=== PATIENT | female | born 1955 | race Caucasian/White ===

== ENCOUNTER 2022-05-04 10:15 | Emergency (ER) | payer MEDICARE | END 2022-05-04 11:10 | disposition home or self-care (01) | LOC: CSHERS 10:15 | DX: I10 Essential (primary) hypertension (principal); E11.42 Type 2 diabetes mellitus with diabetic polyneuropathy; E78.5 Hyperlipidemia, unspecified; F17.210 Nicotine dependence, cigarettes, uncomplicated | CPT/HCPCS: 93005 ==

== ENCOUNTER 2022-05-04 19:00 | Inpatient (IN) | payer MEDICARE ==
[~2022-05-04 19:00] MED LIST: Iopamidol 370 76% 100 ML VIAL ONE
[2022-05-04] MEDS ORDERED: Ondansetron PF 4 MG/2 ML Vial ONE (19:45)
[2022-05-04] MEDS ORDERED: Morphine 4 MG/ML VIAL ONE (19:45)
[2022-05-04 19:57] LABS: Hemoglobin 11.5 g/dL (12.0-15.5); Mean Corpuscular HGB CONC 28.8 g/dL (32.0-36.0); Mean Corpuscular Hemoglobin 32.6 pg (27.0-33.0); Mean Platelet Volume 11.4 fl (7.4-10.4); Platelet Count 339 10x3/uL (150-450); RBC Distribution Width 15.5 % (11.5-14.5); Red Blood Cell (RBC) Count 3.53 10x6/uL (3.90-5.03); White Blood Cell (WBC) Count 28.4 10x3/uL (3.5-10.5)
[2022-05-04 19:59] LABS: PTT 39.1 sec (22.0-33.0); Prothrombin Time 10.9 sec (9.5-12.1)
[2022-05-04 20:03] LABS: ALT (SGPT) 31 U/L (8-55); AST (SGOT) 42 U/L (5-34); Albumin 4.2 g/dL (3.4-4.8); Alkaline Phosphatase 80 U/L (40-110); BUN (Urea Nitrogen) 44 mg/dL (9.8-20.1); Bilirubin, Total 0.1 mg/dL (0.2-1.2); Calc. Creatinine Clearance 0 mL/min (70-130); Calcium 10.7 mg/dL (7.8-10.44); Chloride 90 mmol/L (98-107); Estimated GFR 9; Globulin 3.3 g/dL (2.4-3.5); Glucose 172 mg/dL (80-115); Potassium 4.8 mmol/L (3.5-5.1); Protein, Total 7.5 g/dL (5.8-8.1); Sodium 143 mmol/L (136-145)
[2022-05-04 20:07] LABS: Carbon Dioxide Less than 8 mmol/L (23-31)
[2022-05-04] MEDS ORDERED: Piperacillin/Tazobactam 3.375 GM VIAL ONE (20:10)
[2022-05-04 20:18] LABS: MDiff Complete? YES
[2022-05-04 20:21] LABS: Band 2 % (5-11); Eosinophils 1 % (0-10); Lymphocytes 41 % (21-51); Monocytes 2 % (0-10); Neutrophil 53 % (42-75)
[2022-05-04 20:22] LABS: Platelet Morphology Comment PLT clumps seen-ADEQ
[2022-05-04 20:23] LABS: Platelet Clumps SLIGHT; RBC Morphology Normal
[2022-05-04 20:49] LABS: Magnesium 3.2 mg/dL (1.6-2.6)
[2022-05-04] MEDS ORDERED: Propofol 1,000 MG/100 ML VIAL IV ONE (21:08)
[2022-05-04 21:29] LABS: Bilirubin Neg (Negative); Blood, Urine 150 (Negative); Clarity Cloudy (Clear); Glucose, Urine (Dipstick) Normal (Negative); Ketone, Urine 50 mg/dL (Negative); Leukocyte 500 (Negative); Nitrite Negative (Negative); Protein, Urine (Dipstick) 100 mg/dl (Neg-Trace); Urobilinogen Normal mg/dL (Less than 2)
[2022-05-04] MEDS ORDERED: Vancomycin 1.5 GRAM/300 ML BAG 1.5 GM in Premix Bag 1 BAG IVPB SCH (21:30)
[2022-05-04] MEDS ORDERED: POTASSIUM CHLORIDE IV SCH (21:30)
[2022-05-04] MEDS ORDERED: SODIUM BICARBONATE IV SCH (21:30)
[2022-05-04] MEDS ORDERED: STERILE WATER IV SCH (21:30)
[2022-05-04 21:41] LABS: Bacteria/HPF 4+ HPF (None Seen); Squamous Epithelial 0-3 HPF (0-3); Yeast-Budding 2+ HPF (None Seen)
[2022-05-04 21:42] LABS: Calcium Oxalate Crystals 3+ HPF (None Seen); Mucous/LPF 1+ LPF (<2+); Triple Phosphate Crystal 4+ HPF (None Seen)
[2022-05-04] MEDS ORDERED: Communication Order-Pharmacy FS ONE (22:01)
[2022-05-04] MEDS ORDERED: INSULIN REGULAR IN 0.9 % NACL 100 UNIT in Premix Bag 1 BAG IVPB SCH (22:15)
[2022-05-04 22:52] LABS: BUN (Urea Nitrogen) 41 mg/dL (9.8-20.1); Calc. Creatinine Clearance 0 mL/min (70-130); Carbon Dioxide Less than 8 mmol/L (23-31); Chloride 97 mmol/L (98-107); Estimated GFR 10; Glucose 125 mg/dL (80-115); Magnesium 3.1 mg/dL (1.6-2.6); Phosphorus 9.8 mg/dL (2.3-4.7); Sodium 139 mmol/L (136-145)
[2022-05-04 22:53] LABS: Lactic Acid 19.6 mmol/L (0.5-2.2)
[2022-05-04] MEDS ORDERED: NOREPINEPHRINE 8 MG/250 ML-D5W 250 ML ONE (23:41)
[2022-05-04] MEDS: FENTANYL 2,000MCG/100-0.9%NACL 100 ML IVPB SCH (23:46)
[2022-05-05] MEDS ORDERED: [UNRECOGNIZED DRUG - OTHER] FS SCH (00:15)
[2022-05-05 01:38] LABS: ALT (SGPT) 27 U/L (8-55); AST (SGOT) 49 U/L (5-34); Albumin 3.1 g/dL (3.4-4.8); Alkaline Phosphatase 69 U/L (40-110); BUN (Urea Nitrogen) 45 mg/dL (9.8-20.1); Bilirubin, Total 0.2 mg/dL (0.2-1.2); Calc. Creatinine Clearance 14 mL/min (70-130); Calcium 8.8 mg/dL (7.8-10.44); Carbon Dioxide Less than 8 mmol/L (23-31); Chloride 96 mmol/L (98-107); Estimated GFR 10; Globulin 2.5 g/dL (2.4-3.5); Glucose 135 mg/dL (80-115); Lactic Acid 17.9 mmol/L (0.5-2.2); Phosphorus 10.1 mg/dL (2.3-4.7); Potassium 6.2 mmol/L (3.5-5.1); Protein, Total 5.6 g/dL (5.8-8.1); Sodium 137 mmol/L (136-145)
[2022-05-05] MEDS: Sodium Bicarbonate 150 MEQ in Dextrose 5% in Water 1,000 ML IV SCH ×3 (01:45→08:05)
[2022-05-05] MEDS ORDERED: Fentanyl BOLUS 250 ML IVPB PRN (02:00)
[2022-05-05] MEDS ORDERED: Propofol 1,000 MG/100 ML VIAL IV PRN (02:00)
[2022-05-05] MEDS ORDERED: Propofol BOLUS 1,000 MG/100 ML VIAL IV PRN (02:00)
[2022-05-05] MEDS ORDERED: Lorazepam 2 MG/ML VIAL SLOW IVP PRN (02:00)
[2022-05-05] MEDS ORDERED: DISCONTINUE PREVIOUS NARCOTIC PAIN MEDICATIONS AND BENZODIAZEPINES FS SCH (02:00)
[2022-05-05] MEDS ORDERED: Pantoprazole 40 MG VIAL IVP SCH ×2 (03:00→09:00)
[2022-05-05] MEDS ORDERED: INSULIN REGULAR IN 0.9 % NACL 100 UNIT in Premix Bag 1 BAG IVPB SCH (03:30)
[2022-05-05] MEDS ORDERED: Dextrose 10% in Water 1,000 ML IV SCH (03:30)
[2022-05-05] MEDS ORDERED: Sodium Bicarb 50 MEQ/50 ML Abboject 8.4% SYRINGE IVP SCH (03:30)
[2022-05-05 03:45] LABS: Base Excess (BEa) -35.1 mEq/L (-2.0 to +3.0); CO2 Tension 30.6 mmHg (35.0-45.0); Carboxyhemoglobin (COHb) 1.2 gm% (0.0-3.0); Hemoglobin (Hb) 13.3 g/dL (12.0-16.0); O2 Tension (PaO2), arterial 111.5 mmHg (> 80.0); Potassium - ABG Lab 4.8 mmol/L (3.70-5.30); Puncture Site RRA
[2022-05-05] MEDS ORDERED: Sodium Bicarb 50 MEQ/50 ML VIAL IVP SCH ×4 (03:45→11:45)
[2022-05-05 03:48] LABS: ALV-art Gradient 108.125 mmHg (0-20); Actual Bicarbonate (HCO3a) 2.6 mEq/L (22-28); Base Excess (BEa) -36.6 mEq/L (-2.0 to +3.0); CO2 Tension 31.5 mmHg (35.0-45.0); Calcium, Ionized (arterial) 1.25 mmol/L (1.12-1.30); Carboxyhemoglobin (COHb) 0.3 gm% (0.0-3.0); Hemoglobin (Hb) 12.6 g/dL (12.0-16.0); Potassium - ABG Lab 4.9 mmol/L (3.70-5.30); Puncture Site RRA; pH, Arterial 6.54 (7.35-7.45)
[2022-05-05 04:22] LABS: Hemoglobin 10.1 g/dL (12.0-15.5); Mean Corpuscular Hemoglobin 32.7 pg (27.0-33.0); Mean Corpuscular Volume 112.6 fl (81.6-98.3); Mean Platelet Volume 11.5 fl (7.4-10.4); Platelet Count 293 10x3/uL (150-450); RBC Distribution Width 15.3 % (11.5-14.5); Red Blood Cell (RBC) Count 3.09 10x6/uL (3.90-5.03); White Blood Cell (WBC) Count 34.8 10x3/uL (3.5-10.5)
[2022-05-05 04:24] LABS: Actual Bicarbonate (HCO3a) 3.2 mEq/L (22-28); Base Excess (BEa) -31.3 mEq/L (-2.0 to +3.0); CO2 Tension 24.2 mmHg (35.0-45.0); Calcium, Ionized (arterial) 1.14 mmol/L (1.12-1.30); Carboxyhemoglobin (COHb) 0.3 gm% (0.0-3.0); Hemoglobin (Hb) 11.2 g/dL (12.0-16.0); O2 Tension (PaO2), arterial 172.2 mmHg (> 80.0); Potassium - ABG Lab 6.6 mmol/L (3.70-5.30); Puncture Site RRA; pH, Arterial 6.75 (7.35-7.45)
[2022-05-05 04:25] LABS: BUN (Urea Nitrogen) 49 mg/dL (9.8-20.1); Calc. Creatinine Clearance 14 mL/min (70-130); Calcium 8.6 mg/dL (7.8-10.44); Chloride 91 mmol/L (98-107); Estimated GFR 10; Glucose 239 mg/dL (80-115); MDiff Complete? YES; Sodium 134 mmol/L (136-145)
[2022-05-05 04:29] LABS: Carbon Dioxide Less than 8 mmol/L (23-31); Potassium 6.6 mmol/L (3.5-5.1)
[2022-05-05 04:30] LABS: Troponin I 0.055 ng/mL (< 0.028)
[2022-05-05 04:39] LABS: SARS-CoV-2 NAA Rapid Test Not Detected (NotDetected)
[2022-05-05] MEDS: metroNIDAZOLE 500 MG in Premix Bag 1 BAG IVPB SCH ×2 (04:55→11:55)
[2022-05-05] MEDS: Piperacillin/Tazobactam 3.375 GM in Sodium Chloride 0.9% 100 ML IVPB SCH ×2 (04:55→16:24)
[2022-05-05 05:22] LABS: Band 12 % (5-11); Lymphocytes 25 % (21-51); Monocytes 15 % (0-10); Neutrophil 48 % (42-75)
[2022-05-05 05:30] LABS: Crenated RBC SLIGHT = 1-5 cells (100X) (None Seen); Microcytosis SLIGHT = 6-15 cells (100X) (0-5/hpf); Platelet Morphology Comment Appears Adequate
[2022-05-05 07:15] LABS: BUN (Urea Nitrogen) 45 mg/dL (9.8-20.1); Calc. Creatinine Clearance 14 mL/min (70-130); Calcium 8.4 mg/dL (7.8-10.44); Chloride 87 mmol/L (98-107); Estimated GFR 10; Glucose 398 mg/dL (80-115); Magnesium 2.7 mg/dL (1.6-2.6); Phosphorus 8.8 mg/dL (2.3-4.7); Sodium 140 mmol/L (136-145)
[2022-05-05 07:19] LABS: Carbon Dioxide Less than 8 mmol/L (23-31); Potassium 6.1 mmol/L (3.5-5.1)
[2022-05-05 07:48] LABS: HBSAg Index 0.16 S/CO (0-0.99); Hep B Surf Ag Non-Reactive S/CO (NonReactive)
[2022-05-05] MEDS ORDERED: Albumin 25% 200 ML ONE (07:58)
[2022-05-05] MEDS ORDERED: Albumin 25% 25 GM/100 ML BOT IVPB ONE (08:00)
[2022-05-05] MEDS: Heparin 5,000 UNITS/ML VIAL SC SCH ×3 (08:58→20:33)
[2022-05-05] MEDS: Pantoprazole 40 MG VIAL IVP SCH ×2 (08:58→20:34)
[2022-05-05] MEDS: NOREPINEPHRINE 8 MG/250 ML-D5W 250 ML IVPB SCH ×2 (09:15)
[2022-05-05] MEDS ORDERED: FLU VACC QS2022-23(65YR UP)/PF 240 MCG/0.7 ML SYRINGE IM ONE (10:15)
[2022-05-05 10:35] LABS: Anion Gap 32 mmol/L (10-20); BUN (Urea Nitrogen) 22 mg/dL (9.8-20.1); Calc. Creatinine Clearance 32 mL/min (70-130); Calcium 8.4 mg/dL (7.8-10.44); Carbon Dioxide 20 mmol/L (23-31); Chloride 92 mmol/L (98-107); Estimated GFR 27; Glucose 256 mg/dL (80-115); Potassium 3.5 mmol/L (3.5-5.1); Sodium 140 mmol/L (136-145)
[2022-05-05] MEDS ORDERED: Heparin 10,000 UNITS/ 10 ML VIAL FS PRN (10:44)
[2022-05-05] MEDS ORDERED: Vasopressin 20 UNIT, Admixture Fee 1 EACH in Sodium Chloride 0.9% 50 ML IV SCH (11:45)
[2022-05-05] MEDS: Hydrocortisone Sod Succ/PF 100 mg/2 ml Vial IVP SCH ×2 (11:55→20:13)
[2022-05-05] MEDS: Sodium Chloride 0.9% 1,000 ML IV SCH ×4 (12:42→16:25)
[2022-05-05 13:30] LABS: Actual Bicarbonate (HCO3a) 28.8 mEq/L (22-28); Base Excess (BEa) 6.2 mEq/L (-2.0 to +3.0); CO2 Tension 33.4 mmHg (35.0-45.0); Calcium, Ionized (arterial) 0.93 mmol/L (1.12-1.30); Carboxyhemoglobin (COHb) 0.3 gm% (0.0-3.0); Hemoglobin (Hb) 8.2 g/dL (12.0-16.0); Potassium - ABG Lab 3.6 mmol/L (3.70-5.30); Puncture Site RRA; pH, Arterial 7.55 (7.35-7.45)
[2022-05-05 14:35] LABS: Anion Gap 29 mmol/L (10-20); BUN (Urea Nitrogen) 15 mg/dL (9.8-20.1); Calc. Creatinine Clearance 36 mL/min (70-130); Calcium 7.8 mg/dL (7.8-10.44); Carbon Dioxide 26 mmol/L (23-31); Chloride 95 mmol/L (98-107); Estimated GFR 32; Glucose 83 mg/dL (80-115); Potassium 3.9 mmol/L (3.5-5.1); Sodium 146 mmol/L (136-145)
[2022-05-05 18:07] LABS: Complement-C4 49.5 mg/dL (15-57)
[2022-05-05 18:09] LABS: Lactic Acid 1.8 mmol/L (0.5-2.2)
[2022-05-05 18:12] LABS: Anion Gap 33 mmol/L (10-20); BUN (Urea Nitrogen) 17 mg/dL (9.8-20.1); Calc. Creatinine Clearance 33 mL/min (70-130); Calcium 7.7 mg/dL (7.8-10.44); Carbon Dioxide 19 mmol/L (23-31); Chloride 97 mmol/L (98-107); Estimated GFR 29; Potassium 3.5 mmol/L (3.5-5.1); Sodium 145 mmol/L (136-145)
[2022-05-05 18:24] LABS: Glucose 51 mg/dL (80-115)
[2022-05-05] MEDS ORDERED: Dextrose 5 % And 0.9 % NaCl 1,000 ML IV SCH (19:00)
[2022-05-05] MEDS ORDERED: Dextrose 50% Abboject 50 ML SYRINGE SLOW IVP SCH (19:15)
[2022-05-06] MEDS: Lantus 1000 UNITS/10 ML VIAL SC SCH ×3 (00:52→19:41)
[2022-05-06] MEDS: Hydrocortisone Sod Succ/PF 100 mg/2 ml Vial IVP SCH (04:47)
[2022-05-06] MEDS: Piperacillin/Tazobactam 3.375 GM in Sodium Chloride 0.9% 100 ML IVPB SCH ×2 (04:47→16:00)
[2022-05-06] MEDS: FENTANYL 2,000MCG/100-0.9%NACL 100 ML IVPB SCH (04:57)
[2022-05-06 06:47] LABS: Anion Gap 37 mmol/L (10-20); BUN (Urea Nitrogen) 23 mg/dL (9.8-20.1); Calc. Creatinine Clearance 24 mL/min (70-130); Calcium 7.5 mg/dL (7.8-10.44); Carbon Dioxide 14 mmol/L (23-31); Chloride 100 mmol/L (98-107); Estimated GFR 18; Glucose 141 mg/dL (80-115); Potassium 3.5 mmol/L (3.5-5.1); Sodium 147 mmol/L (136-145)
[2022-05-06 06:53] LABS: #Monocytes 0.5 10x3/uL (0.0-1.1); #Neutrophils 5.9 10x3/uL (1.5-8.4); %Monocytes 6.7 % (0.0-10.0); %Neutrophils 77.8 % (40.0-75.0); Hemoglobin 7.5 g/dL (12.0-15.5); Mean Corpuscular HGB CONC 33.2 g/dL (32.0-36.0); Mean Corpuscular Hemoglobin 32.3 pg (27.0-33.0); Mean Corpuscular Volume 97.4 fl (81.6-98.3); Mean Platelet Volume 11.2 fl (7.4-10.4); Platelet Count 97 10x3/uL (150-450); RBC Distribution Width 16.2 % (11.5-14.5); Red Blood Cell (RBC) Count 2.32 10x6/uL (3.90-5.03); White Blood Cell (WBC) Count 7.6 10x3/uL (3.5-10.5)
[2022-05-06] MEDS ORDERED: Sodium Bicarbonate 75 MEQ in Dextrose 5% in Water 1,000 ML IV SCH (07:00)
[2022-05-06] MEDS: Pantoprazole 40 MG VIAL IVP SCH ×2 (08:13→21:29)
[2022-05-06] MEDS: Heparin 5,000 UNITS/ML VIAL SC SCH ×2 (08:15→09:57)
[2022-05-06 08:21] LABS: Actual Bicarbonate (HCO3a) 20.8 mEq/L (22-28); Base Excess (BEa) -1.9 mEq/L (-2.0 to +3.0); CO2 Tension 27.4 mmHg (35.0-45.0); Calcium, Ionized (arterial) 0.93 mmol/L (1.12-1.30); Carboxyhemoglobin (COHb) 0.3 gm% (0.0-3.0); Hemoglobin (Hb) 8.1 g/dL (12.0-16.0); O2 Tension (PaO2), arterial 146.7 mmHg (> 80.0); Potassium - ABG Lab 3.4 mmol/L (3.70-5.30); Puncture Site RRA
[2022-05-06 09:16] LABS: Iron 81 ug/dL (50-170); Iron Binding Capacity, Total 135 mcg/dL (265-497)
[2022-05-06] MEDS ORDERED: Dextrose 10% in Water 1,000 ML IV SCH (11:15)
[2022-05-06 12:49] LABS: Actual Bicarbonate (HCO3a) 27.7 mEq/L (22-28); Base Excess (BEa) 3.8 mEq/L (-2.0 to +3.0); CO2 Tension 38.9 mmHg (35.0-45.0); Calcium, Ionized (arterial) 0.96 mmol/L (1.12-1.30); Carboxyhemoglobin (COHb) 0.1 gm% (0.0-3.0); Hemoglobin (Hb) 8.3 g/dL (12.0-16.0); O2 Tension (PaO2), arterial 89.9 mmHg (> 80.0); Potassium - ABG Lab 3.3 mmol/L (3.70-5.30); Puncture Site RRA; pH, Arterial 7.47 (7.35-7.45)
[2022-05-06 12:52] LABS: ALV-art Gradient 146.675 mmHg (0-20)
[2022-05-06] MEDS: Dextrose 5% in Water 1,000 ML IV SCH (14:40)
[2022-05-06] MEDS ORDERED: Heparin 5,000 UNITS/ML VIAL SC SCH (21:00)
[2022-05-06] MEDS ORDERED: Labetalol HCl 100 MG/20 ML VIAL SLOW IVP SCH (23:15)
[2022-05-07 03:24] LABS: #Monocytes 0.4 10x3/uL (0.0-1.1); #Neutrophils 3.9 10x3/uL (1.5-8.4); %Basophils 0.2 % (0.0-2.0); %Eosinophils 0.4 % (0.0-6.0); %Monocytes 6.9 % (0.0-10.0); %Neutrophils 72.1 % (40.0-75.0); Hemoglobin 7.5 g/dL (12.0-15.5); Mean Corpuscular HGB CONC 32.5 g/dL (32.0-36.0); Mean Corpuscular Hemoglobin 32.1 pg (27.0-33.0); Mean Corpuscular Volume 98.7 fl (81.6-98.3); Platelet Count 74 10x3/uL (150-450); RBC Distribution Width 16.6 % (11.5-14.5); Red Blood Cell (RBC) Count 2.34 10x6/uL (3.90-5.03); White Blood Cell (WBC) Count 5.3 10x3/uL (3.5-10.5)
[2022-05-07 03:42] LABS: Albumin 3.2 g/dL (3.4-4.8); Anion Gap 19 mmol/L (10-20); BUN (Urea Nitrogen) 30 mg/dL (9.8-20.1); BUN/Creatinine Ratio 7.71; Calc. Creatinine Clearance 17 mL/min (70-130); Calcium 7.4 mg/dL (7.8-10.44); Carbon Dioxide 28 mmol/L (23-31); Chloride 97 mmol/L (98-107); Estimated GFR 12; Glucose 145 mg/dL (80-115); Phosphorus 2.6 mg/dL (2.3-4.7); Potassium 2.8 mmol/L (3.5-5.1); Sodium 141 mmol/L (136-145)
[2022-05-07] MEDS: Piperacillin/Tazobactam 3.375 GM in Sodium Chloride 0.9% 100 ML IVPB SCH ×2 (05:11→15:12)
[2022-05-07 07:28] LABS: Vancomycin, Random 13.4 ug/mL (See Comment)
[2022-05-07] MEDS ORDERED: Potassium Chloride 20 MEQ in Premix Bag 1 BAG IVPB SCH (08:00)
[2022-05-07] MEDS: Pantoprazole 40 MG VIAL IVP SCH ×2 (08:23→21:00)
[2022-05-07] MEDS: Lantus 1000 UNITS/10 ML VIAL SC SCH ×2 (08:24→22:07)
[2022-05-07] MEDS: Dextrose 5% in Water 1,000 ML IV SCH (08:34)
[2022-05-07] MEDS ORDERED: Hydrocortisone Sod Succ/PF 100 mg/2 ml Vial IVP SCH (09:00)
[2022-05-07] MEDS ORDERED: Lisinopril 20 MG TAB PO SCH (14:30)
[2022-05-07] MEDS: NIFEdipine XL 90 MG TAB PO SCH ×2 (15:29→15:43)
[2022-05-07] MEDS ORDERED: Vancomycin HCl 750 MG in Sodium Chloride 0.9% 250 ML 250 ML IVPB SCH (17:00)
[2022-05-07] MEDS ORDERED: Dextrose 50% Abboject 50 ML SYRINGE SLOW IVP PRN (18:03)
[2022-05-07] MEDS ORDERED: Dextrose 5% in Water 1,000 ML IV PRN (18:03)
[2022-05-07] MEDS: Gabapentin 300 MG CAP PO SCH (21:01)
[2022-05-07] MEDS: Rosuvastatin 10 MG TAB PO SCH (21:01)
[2022-05-07] MEDS: Metoprolol Tartrate 25 MG TAB PO SCH (22:07)
[2022-05-08] MEDS: Morphine 2 MG/ML VIAL SLOW IVP PRN ×2 (00:59→11:43)
[2022-05-08 03:46] LABS: #Monocytes 0.4 10x3/uL (0.0-1.1); #Neutrophils 4.2 10x3/uL (1.5-8.4); %Basophils 0.2 % (0.0-2.0); %Eosinophils 0.5 % (0.0-6.0); %Lymphocytes 21.7 % (18.0-47.0); %Monocytes 6.1 % (0.0-10.0); %Neutrophils 71.2 % (40.0-75.0); Hemoglobin 7.4 g/dL (12.0-15.5); Mean Corpuscular HGB CONC 32.3 g/dL (32.0-36.0); Mean Corpuscular Hemoglobin 31.9 pg (27.0-33.0); Mean Corpuscular Volume 98.7 fl (81.6-98.3); Platelet Count 74 10x3/uL (150-450); RBC Distribution Width 15.5 % (11.5-14.5); Red Blood Cell (RBC) Count 2.32 10x6/uL (3.90-5.03)
[2022-05-08 04:01] LABS: Anion Gap 13 mmol/L (10-20); BUN (Urea Nitrogen) 15 mg/dL (9.8-20.1); BUN/Creatinine Ratio 5.98; Calc. Creatinine Clearance 27 mL/min (70-130); Calcium 8.1 mg/dL (7.8-10.44); Carbon Dioxide 27 mmol/L (23-31); Chloride 100 mmol/L (98-107); Estimated GFR 21; Glucose 157 mg/dL (80-115); Phosphorus 1.9 mg/dL (2.3-4.7); Sodium 137 mmol/L (136-145)
[2022-05-08] MEDS: Piperacillin/Tazobactam 3.375 GM in Sodium Chloride 0.9% 100 ML IVPB SCH (04:41)
[2022-05-08] MEDS ORDERED: Potassium Chloride 20 MEQ in Premix Bag 1 BAG IVPB SCH (05:00)
[2022-05-08] MEDS ORDERED: EPOETIN ALFA-EPBX (ESRD) 10,000 UNIT/ML VIAL SC SCH (06:00)
[2022-05-08] MEDS ORDERED: Potassium Phosphate 22 MMOL in Sodium Chloride 0.9% 250 ML 250 ML IVPB SCH (06:15)
[2022-05-08 07:33] LABS: Vancomycin, Random 8.9 ug/mL (See Comment)
[2022-05-08] MEDS: Gabapentin 300 MG CAP PO SCH ×2 (08:49→22:55)
[2022-05-08] MEDS: Metoprolol Tartrate 25 MG TAB PO SCH (08:50)
[2022-05-08] MEDS: Lantus 1000 UNITS/10 ML VIAL SC SCH (08:50)
[2022-05-08] MEDS: Pantoprazole 40 MG VIAL IVP SCH ×2 (08:50→22:56)
[2022-05-08] MEDS ORDERED: NIFEdipine XL 90 MG TAB PO SCH (09:00)
[2022-05-08] MEDS ORDERED: Lisinopril 20 MG TAB PO SCH (09:00)
[2022-05-08] MEDS ORDERED: Vancomycin HCl 750 MG in Sodium Chloride 0.9% 250 ML 250 ML IVPB SCH (10:30)
[2022-05-08] MEDS: HumaLOG 300 UNITS/3 ML VIAL SC SCH ×2 (11:43→17:12)
[2022-05-08] MEDS: Rosuvastatin 10 MG TAB PO SCH (22:56)
[2022-05-09 05:14] LABS: Albumin 2.8 g/dL (3.4-4.8); Anion Gap 13 mmol/L (10-20); BUN (Urea Nitrogen) 21 mg/dL (9.8-20.1); BUN/Creatinine Ratio 5.87; Calc. Creatinine Clearance 18 mL/min (70-130); Calcium 7.5 mg/dL (7.8-10.44); Carbon Dioxide 26 mmol/L (23-31); Chloride 102 mmol/L (98-107); Estimated GFR 14; Glucose 87 mg/dL (80-115); Phosphorus 3.9 mg/dL (2.3-4.7); Potassium 3.5 mmol/L (3.5-5.1); Sodium 137 mmol/L (136-145)
[2022-05-09] MEDS: Metoprolol Tartrate 25 MG TAB PO SCH ×2 (05:23→07:51)
[2022-05-09] MEDS: Lantus 1000 UNITS/10 ML VIAL SC SCH ×2 (05:27→12:29)
[2022-05-09 07:43] LABS: Vancomycin, Random 18.9 ug/mL (See Comment)
[2022-05-09] MEDS: Albumin 25% 25 GM/100 ML BOT IVPB SCH ×2 (07:49→13:25)
[2022-05-09] MEDS: Gabapentin 300 MG CAP PO SCH (07:51)
[2022-05-09] MEDS ORDERED: Heparin 10,000 UNITS/ 10 ML VIAL SLOW IVP PRN ×2 (09:50→09:51)
[2022-05-09] MEDS ORDERED: Potassium Chloride 20 MEQ TAB PO SCH (11:00)
[2022-05-09] MEDS ORDERED: Iopamidol 370 76% 100 ML VIAL ONE (11:34)
[2022-05-09 11:40] LABS: HBSAg Index 0.16 S/CO (0-0.99); Hep B Surf Ag Non-Reactive S/CO (NonReactive)
[2022-05-09] MEDS ORDERED: Cosyntropin 250 MCG VIAL SLOW IVP SCH (12:00)
[2022-05-09 17:25] LABS: HBSAB Concentration Less than 8.00 mIU/mL; Hep B Surf AB Non-Reactive (NonReactive)
[2022-05-09] MEDS: Ergocalciferol 1.25 MG(50,000 UNITS) CAP PO SCH (18:14)
[2022-05-10] MEDS: Calcium Carbonate 500 MG ChewTAB PO SCH ×3 (00:13→22:56)
[2022-05-10] MEDS: Rosuvastatin 10 MG TAB PO SCH ×2 (00:13→22:55)
[2022-05-10] MEDS: Gabapentin 300 MG CAP PO SCH ×3 (00:14→22:55)
[2022-05-10] MEDS: Ergocalciferol 1.25 MG(50,000 UNITS) CAP PO SCH (00:15)
[2022-05-10] MEDS: Lantus 1000 UNITS/10 ML VIAL SC SCH (05:59)
[2022-05-10] MEDS: Metoprolol Tartrate 25 MG TAB PO SCH ×2 (06:00→10:20)
[2022-05-10] MEDS: traMADol HCl 50 MG TAB PO PRN ×2 (06:59→22:54)
[2022-05-10] MEDS ORDERED: Iopamidol 370 76% 100 ML VIAL ONE (11:05)
[2022-05-11 04:46] LABS: #Eosinphils 0.2 10x3/uL (0.0-0.5); #Monocytes 0.6 10x3/uL (0.0-1.1); #Neutrophils 3.8 10x3/uL (1.5-8.4); %Basophils 0.3 % (0.0-2.0); %Eosinophils 2.9 % (0.0-6.0); %Lymphocytes 27.7 % (18.0-47.0); %Monocytes 8.5 % (0.0-10.0); %Neutrophils 59.1 % (40.0-75.0); Hemoglobin 7.3 g/dL (12.0-15.5); Mean Corpuscular HGB CONC 31.6 g/dL (32.0-36.0); Mean Corpuscular Hemoglobin 32.3 pg (27.0-33.0); Mean Corpuscular Volume 102.2 fl (81.6-98.3); Mean Platelet Volume 11.4 fl (7.4-10.4); Platelet Count 106 10x3/uL (150-450); RBC Distribution Width 15.1 % (11.5-14.5); Red Blood Cell (RBC) Count 2.26 10x6/uL (3.90-5.03); White Blood Cell (WBC) Count 6.5 10x3/uL (3.5-10.5)
[2022-05-11 04:53] LABS: Albumin 3.5 g/dL (3.4-4.8); Anion Gap 10 mmol/L (10-20); BUN (Urea Nitrogen) 15 mg/dL (9.8-20.1); BUN/Creatinine Ratio 4.89; Calc. Creatinine Clearance 22 mL/min (70-130); Calcium 8.4 mg/dL (7.8-10.44); Carbon Dioxide 33 mmol/L (23-31); Chloride 100 mmol/L (98-107); Estimated GFR 16; Glucose 89 mg/dL (80-115); Phosphorus 2.1 mg/dL (2.3-4.7); Potassium 4.4 mmol/L (3.5-5.1); Sodium 139 mmol/L (136-145)
[2022-05-11] MEDS: Lantus 1000 UNITS/10 ML VIAL SC SCH ×2 (06:23→21:30)
[2022-05-11] MEDS: Metoprolol Tartrate 25 MG TAB PO SCH ×3 (06:24→22:11)
[2022-05-11] MEDS ORDERED: EPOETIN ALFA-EPBX (ESRD) 10,000 UNIT/ML VIAL SC SCH (09:00)
[2022-05-11 11:11] VITALS: BMI 93.1
[2022-05-11] MEDS: Gabapentin 300 MG CAP PO SCH ×2 (15:32→22:09)
[2022-05-11] MEDS: Calcium Carbonate 500 MG ChewTAB PO SCH ×2 (15:32→22:13)
[2022-05-11] MEDS: Rosuvastatin 10 MG TAB PO SCH (22:11)
[2022-05-12 07:17] LABS: #Eosinphils 0.2 10x3/uL (0.0-0.5); #Monocytes 0.9 10x3/uL (0.0-1.1); #Neutrophils 3.5 10x3/uL (1.5-8.4); %Basophils 0.3 % (0.0-2.0); %Eosinophils 3.1 % (0.0-6.0); %Monocytes 14.5 % (0.0-10.0); %Neutrophils 54.7 % (40.0-75.0); Hemoglobin 7.5 g/dL (12.0-15.5); Mean Corpuscular HGB CONC 31.3 g/dL (32.0-36.0); Mean Corpuscular Hemoglobin 32.2 pg (27.0-33.0); Mean Platelet Volume 10.9 fl (7.4-10.4); Platelet Count 145 10x3/uL (150-450); RBC Distribution Width 15.4 % (11.5-14.5); Red Blood Cell (RBC) Count 2.33 10x6/uL (3.90-5.03); White Blood Cell (WBC) Count 6.4 10x3/uL (3.5-10.5)
[2022-05-12 07:34] LABS: Albumin 3.2 g/dL (3.4-4.8); Anion Gap 16 mmol/L (10-20); BUN (Urea Nitrogen) 9 mg/dL (9.8-20.1); BUN/Creatinine Ratio 3.33; Calc. Creatinine Clearance 26 mL/min (70-130); Calcium 8.4 mg/dL (7.8-10.44); Carbon Dioxide 29 mmol/L (23-31); Chloride 100 mmol/L (98-107); Estimated GFR 19; Glucose 101 mg/dL (80-115); Phosphorus 2.6 mg/dL (2.3-4.7); Potassium 3.5 mmol/L (3.5-5.1); Sodium 141 mmol/L (136-145)
[2022-05-12] MEDS: Calcium Carbonate 500 MG ChewTAB PO SCH (09:06)
[2022-05-12] MEDS: traMADol HCl 50 MG TAB PO PRN (09:07)
[2022-05-12] MEDS: Gabapentin 300 MG CAP PO SCH (09:07)
[2022-05-12] MEDS: Metoprolol Tartrate 25 MG TAB PO SCH (09:08)
[2022-05-12] MEDS: HumaLOG 300 UNITS/3 ML VIAL SC SCH (12:04)
[2022-05-12 12:59] VITALS: BP 114/57; TEMP 98.2
[2022-05-16] MEDS ORDERED: Ergocalciferol 1.25 MG(50,000 UNITS) CAP PO SCH (09:00)
== END 2022-05-12 17:06 | DRG 871 ==
LOC: CSHERS 19:00 → CSHICU 23:45 → CSHTELE 05-08 15:25
PROVIDERS: ADMIT Family Medicine; ATTEND Internal Medicine
PROC: 0BH17EZ Insertion of Endotracheal Airway into Trachea, Via Natural or Artificial Opening (ICD-10-PCS; principal; 2022-05-04)
PROC: 5A1945Z Respiratory Ventilation, 24-96 Consecutive Hours (ICD-10-PCS; 2022-05-04)
PROC: 3E033XZ Introduction of Vasopressor into Peripheral Vein, Percutaneous Approach (ICD-10-PCS; 2022-05-04)
PROC: 3E03329 Introduction of Other Anti-infective into Peripheral Vein, Percutaneous Approach (ICD-10-PCS; 2022-05-04)
PROC: 02H633Z Insertion of Infusion Device into Right Atrium, Percutaneous Approach (ICD-10-PCS; 2022-05-05)
PROC: B548ZZA Ultrasonography of Superior Vena Cava, Guidance (ICD-10-PCS; 2022-05-05)
PROC: 5A1D70Z Performance of Urinary Filtration, Intermittent, Less than 6 Hours Per Day (ICD-10-PCS; 2022-05-05)
PROC: 5A1D70Z Performance of Urinary Filtration, Intermittent, Less than 6 Hours Per Day (ICD-10-PCS; 2022-05-07)
PROC: 30233J1 Transfusion of Nonautologous Serum Albumin into Peripheral Vein, Percutaneous Approach (ICD-10-PCS; 2022-05-09)
PROC: 5A1D70Z Performance of Urinary Filtration, Intermittent, Less than 6 Hours Per Day (ICD-10-PCS; 2022-05-09)
PROC: 5A1D70Z Performance of Urinary Filtration, Intermittent, Less than 6 Hours Per Day (ICD-10-PCS; 2022-05-11)
DX: A41.9 Sepsis, unspecified organism (principal); E11.10 Type 2 diabetes mellitus with ketoacidosis without coma; N18.6 End stage renal disease; G92.8 Other toxic encephalopathy; R57.8 Other shock; J96.01 Acute respiratory failure with hypoxia; R65.21 Severe sepsis with septic shock; D68.51 Activated protein C resistance; N39.0 Urinary tract infection, site not specified; K56.609 Unspecified intestinal obstruction, unspecified as to partial versus complete obstruction; E87.0 Hyperosmolality and hypernatremia; I13.2 Hypertensive heart and chronic kidney disease with heart failure and with stage 5 chronic kidney disease, or end stage renal disease; E11.22 Type 2 diabetes mellitus with diabetic chronic kidney disease; E78.5 Hyperlipidemia, unspecified; E11.51 Type 2 diabetes mellitus with diabetic peripheral angiopathy without gangrene; E11.42 Type 2 diabetes mellitus with diabetic polyneuropathy; F17.210 Nicotine dependence, cigarettes, uncomplicated; D63.1 Anemia in chronic kidney disease; E87.6 Hypokalemia; K43.5 Parastomal hernia without obstruction or gangrene; E11.622 Type 2 diabetes mellitus with other skin ulcer; L98.419 Non-pressure chronic ulcer of buttock with unspecified severity; Z20.822 Contact with and (suspected) exposure to COVID-19; E86.0 Dehydration; E83.39 Other disorders of phosphorus metabolism; E83.51 Hypocalcemia; Z88.8 Allergy status to other drugs, medicaments and biological substances; Z79.82 Long term (current) use of aspirin; Z88.5 Allergy status to narcotic agent; Z79.51 Long term (current) use of inhaled steroids; Z79.899 Other long term (current) drug therapy; Z99.2 Dependence on renal dialysis; Z98.890 Other specified postprocedural states; Z89.612 Acquired absence of left leg above knee; Z89.611 Acquired absence of right leg above knee
CPT/HCPCS: 36415; 36416; 36600; 70450; 71045; 74174; 74176; 74177; 80048; 80053; 80069; 80202; 80400; 81003; 81015; 82010; 82040; 82306; 82330; 82533; 82728; 82805; 83540; 83550; 83605; 83735; 84100; 84484; 85025; 85610; 85652; 85730; 86160; 86706; 87040; 87077; 87086; 87186; 87340; 90935; 94002; 94003; 94150; 94760; 96374; 96375; 97139; C9113; G0257; J0834; J1644; J1720; J1815; J2270; J2272; J2405; J2543; J2704; J3370; J3480; J3490; J7042; J7050; J7070; J7999; P9047; Q5105; Q9967; U0002; U0003; U0005

== ENCOUNTER 2022-06-26 08:16 | Outpatient (CLI) | payer MEDICARE | END 2022-06-26 08:17 | disposition home or self-care (01) | LOC: CSHWCC 08:16 | PROVIDERS: ATTEND Nurse Practitioner Family | DX: L89.154 Pressure ulcer of sacral region, stage 4 (principal) | CPT/HCPCS: 87070; 87205 ==

== ENCOUNTER 2022-06-27 11:29 | Emergency (ER) | payer MEDICARE ==
[2022-06-27 13:05] LABS: #Basophils 0.1 10x3/uL (0.0-0.2); #Eosinphils 0.5 10x3/uL (0.0-0.5); #Monocytes 0.8 10x3/uL (0.0-1.1); #Neutrophils 6.2 10x3/uL (1.5-8.4); %Basophils 0.5 % (0.0-2.0); %Eosinophils 4.9 % (0.0-6.0); %Lymphocytes 23.7 % (18.0-47.0); %Monocytes 7.7 % (0.0-10.0); Mean Corpuscular HGB CONC 31.3 g/dL (32.0-36.0); Mean Corpuscular Hemoglobin 30.7 pg (27.0-33.0); Mean Corpuscular Volume 97.9 fl (81.6-98.3); Mean Platelet Volume 9.4 fl (7.4-10.4); Platelet Count 347 10x3/uL (150-450); RBC Distribution Width 15.9 % (11.5-14.5); Red Blood Cell (RBC) Count 3.26 10x6/uL (3.90-5.03); White Blood Cell (WBC) Count 9.9 10x3/uL (3.5-10.5)
[2022-06-27 13:18] LABS: Anion Gap 20 mmol/L (10-20); BUN (Urea Nitrogen) 24 mg/dL (9.8-20.1); Calc. Creatinine Clearance 0 mL/min (70-130); Calcium 8.6 mg/dL (7.8-10.44); Carbon Dioxide 23 mmol/L (23-31); Chloride 99 mmol/L (98-107); Estimated GFR 20; Glucose 84 mg/dL (80-115); Magnesium 2.5 mg/dL (1.6-2.6); Potassium 4.7 mmol/L (3.5-5.1); Sodium 137 mmol/L (136-145)
[2022-06-27] MEDS ORDERED: PROPOFOL 20 ML ONE (14:23)
[2022-06-27] MEDS ORDERED: Fentanyl 100 MCG/2 ML VIAL ONE (14:23)
[2022-06-27] MEDS ORDERED: Lidocaine 1% PF 5 ML VIAL ONE (14:24)
[2022-06-27] MEDS ORDERED: Ondansetron PF 4 MG/2 ML Vial ONE ×2 (14:24→15:08)
[2022-06-27] MEDS ORDERED: Bupivacaine/Epinephrine 0.25% 30 ML VIAL ONE (14:27)
[2022-06-27] MEDS ORDERED: CEFAZOLIN 2 GM VIAL ONE (14:43)
[2022-06-27] MEDS ORDERED: Dexamethasone 4 mg/ml Vial ONE (15:08)
[2022-06-27] MEDS ORDERED: traMADol HCl 50 MG TAB PO PRN (15:22)
== END 2022-06-27 14:39 | disposition home or self-care (01) ==
LOC: CSHERS 11:29
PROC: 0JH63XZ Insertion of Tunneled Vascular Access Device into Chest Subcutaneous Tissue and Fascia, Percutaneous Approach (ICD-10-PCS; principal; 2022-06-27)
PROC: 05HN33Z Insertion of Infusion Device into Left Internal Jugular Vein, Percutaneous Approach (ICD-10-PCS; 2022-06-27)
DX: T82.49XA Other complication of vascular dialysis catheter, initial encounter (principal); E78.5 Hyperlipidemia, unspecified; E11.42 Type 2 diabetes mellitus with diabetic polyneuropathy; I12.0 Hypertensive chronic kidney disease with stage 5 chronic kidney disease or end stage renal disease; E11.22 Type 2 diabetes mellitus with diabetic chronic kidney disease; N18.6 End stage renal disease; F17.210 Nicotine dependence, cigarettes, uncomplicated; Z99.2 Dependence on renal dialysis; Z79.82 Long term (current) use of aspirin
CPT/HCPCS: 36561; 71045; 80048; 83735; 85025; 99285; C1752 ×2; 36415; J1100; J1642; J2405; J2704; J3010

== ENCOUNTER 2022-07-17 10:31 | Outpatient (CLI) | payer MEDICARE | END 2022-07-17 10:32 | disposition home or self-care (01) | LOC: CSHWCC 10:31 | PROVIDERS: ATTEND Nurse Practitioner Family | DX: L89.154 Pressure ulcer of sacral region, stage 4 (principal) ==

== ENCOUNTER 2022-09-11 10:02 | Outpatient (CLI) | payer MEDICARE | END 2022-09-11 10:03 | disposition home or self-care (01) | LOC: CSHWCC 10:02 | PROVIDERS: ATTEND Nurse Practitioner Family | DX: L89.154 Pressure ulcer of sacral region, stage 4 (principal) | CPT/HCPCS: 97597 ==

== ENCOUNTER 2022-10-09 10:34 | Outpatient (CLI) | payer MEDICARE | END 2022-10-09 10:35 | disposition home or self-care (01) | LOC: CSHWCC 10:34 | PROVIDERS: ATTEND Nurse Practitioner Family | DX: L89.154 Pressure ulcer of sacral region, stage 4 (principal) | CPT/HCPCS: 97597 ==

== ENCOUNTER 2022-11-06 10:23 | Outpatient (CLI) | payer MEDICARE | END 2022-11-06 10:24 | disposition home or self-care (01) | LOC: CSHWCC 10:23 | PROVIDERS: ATTEND Nurse Practitioner Family | DX: L89.154 Pressure ulcer of sacral region, stage 4 (principal) | CPT/HCPCS: 97139; G0463; 99213 ==